=== PATIENT | male | born 1995 | race Caucasian/White ===

== ENCOUNTER 2016-07-11 09:39 | Emergency (ER) | payer MEDICARE, MEDICAID ==
[~2016-07-11] VITALS: Ht 188 cm; Wt 74.5 kg
[2016-07-11 09:42] VITALS: BP 126/87; PULSE 93; RESP 16; TEMP 99.6; O2SAT 100
[2016-07-11] MEDS ORDERED: ZITHTAB PO (10:13)
[2016-07-11] MEDS ORDERED: CHERSYP2 PO (10:13)
--- NOTE | 2016-07-11 10:13 | PD ---
HPI Chief Complaint: Cold / Flu Symptoms Time Seen by Provider: 10:10 Travel History International Travel<30 days: No Contact w/Intl Traveler<30days: No Traveled to known affect area: No History of Present Illness HPI Patient presents with complaints of sore throat and subjective fever for 2 days. Denies nausea vomiting. Admits to loose stools. No new rashes. No sick contacts. He is not a smoker. PFSH Past Medical History Hx Anticoagulant Therapy: No ADHD: Yes Bipolar Disorder: Yes Diabetes: No Diminished Hearing: No Musculoskeletal: Yes (HX LEFT ELBOW DISLOCATION) Immunizations Current: Yes Past Surgical History Surgical History: No Previous Surgery Social History Alcohol Use: No (DENIES) Tobacco Use: No (DENIES) Substance Use: No Allergies-Medications (Allergen,Severity, Reaction): Coded Allergies: No Known Allergies (Verified , 07/11/16) Reported Meds & Prescriptions Reported Meds & Active Scripts Active No Active Prescriptions or Reported Medications Review of Systems General / Constitutional: Positive: Fever Eyes: No: Visual changes HENT: Positive: Headaches, Sore Throat Cardiovascular: No: Chest Pain or Discomfort Respiratory: No: Shortness of Breath Gastrointestinal: No: Abdominal Pain Genitourinary: No: Dysuria Musculoskeletal: No: Pain Skin: No Rash Neurologic: No: Weakness Psychiatric: No: Depression Endocrine: No: Polydipsia Hematologic/Lymphatic: No: Easy Bruising Physical Exam Narrative GENERAL: Well-nourished, well-developed patient. SKIN: Focused skin assessment warm/dry. HEAD: Normocephalic. EYES: No scleral icterus. No injection or drainage. Throat is erythematous with adenopathy and exudate NECK: Supple, trachea midline. No JVD or lymphadenopathy. CARDIOVASCULAR: Regular rate and rhythm without murmurs, gallops, or rubs. RESPIRATORY: Breath sounds equal bilaterally. No accessory muscle use. GASTROINTESTINAL: Abdomen soft, non-tender, nondistended. MUSCULOSKELETAL: No cyanosis, or edema. BACK: Nontender without obvious deformity. No CVA tenderness. Data Data Last Documented VS Vital Signs Date Time Temp Pulse Resp B/P Pulse Ox O2 Delivery O2 Flow Rate FiO2 07/11/16 09:49 16 Room Air 07/11/16 09:42 99.6 93 126/87 100 MDM Medical Decision Making Medical Screen Exam Complete: Yes Emergency Medical Condition: Yes Differential Diagnosis Pharyngitis, strep throat, viral infection Narrative Course Assessment and plan discussed with patient at bedside Diagnosis Primary Impression: Strep throat Patient Instructions: General Instructions Additional Instructions: Rest fluids and Motrin, encourage frequent handwashing, consider vitamin C and zinc to boost immune system, follow-up with PCP symptoms do not improve Med/Other Pt SpecificInfo: Prescription(s) given Scripts Guaifenesin-Codeine Liq (Cheratussin AC Liq)100-10 Mg/5 Ml Syrp10 Ml PO Q4H PRN (COUGH AND COLD SYMPTOMS) #120 ML Ref 0 Do not exceed 6 doses/24 hrs. Prov:Albert Odell MD 07/11/16 Azithromycin (Zithromax Z-Demetrio)250 Mg [id number] Mg PO DIRECTED #1 DSPK Ref 0 500 MG (2 tabs) day 1, then 1 tab days 2-5. Prov:Albert Odell MD 07/11/16 Disposition: 01 DISCHARGE HOME Condition: Good Albert Odell MD Jul 11, 2016 10:13
== END 2016-07-11 10:19 | disposition home or self-care (01) ==
LOC: PHEFT 09:39
DX: J02.0 Streptococcal pharyngitis (principal)
CPT/HCPCS: 99283

== ENCOUNTER 2016-08-16 18:17 | Emergency (ER) | payer MEDICARE, MEDICAID ==
[~2016-08-16] VITALS: Ht 188 cm; Wt 70.2 kg
[~2016-08-16 18:17] MED LIST: CHERSYP2 PO; ZITHTAB PO
[2016-08-16 18:23] VITALS: BP 125/78; PULSE 81; RESP 16; TEMP 98.1; O2SAT 99
[2016-08-16] MEDS ORDERED: PENI250T59 PO (18:44)
[2016-08-16] MEDS ORDERED: ACETAMINOPHEN/HYDROcodone 325 MG/5 MG TAB PO ONE (18:45)
--- NOTE | 2016-08-16 18:59 | PD ---
HPI Chief Complaint: Oral / Dental Pain or Problem Time Seen by Provider: 18:51 Travel History International Travel<30 days: No Contact w/Intl Traveler<30days: No Traveled to known affect area: No History of Present Illness HPI 21-year-old male presents to the emergency room for evaluation of right-sided dental pain and flank the past week. Patient places with some deeper coming in and is requesting something for pain. He is busy and rhythm without significant relief. He does not have a dentist. He states his mother first noticed the swelling yesterday. Pain radiates from the back of his mouth into the front. Denies fever, chills, nausea, and vomiting. PFSH Past Medical History Hx Anticoagulant Therapy: No ADHD: Yes Bipolar Disorder: Yes Diabetes: No Diminished Hearing: No Musculoskeletal: Yes (HX LEFT ELBOW DISLOCATION) Immunizations Current: Yes Tetanus Vaccination: < 5 Years Social History Alcohol Use: No (DENIES) Tobacco Use: No (DENIES) Substance Use: No Allergies-Medications (Allergen,Severity, Reaction): Coded Allergies: No Known Allergies (Verified , 08/16/16) Reported Meds & Prescriptions Reported Meds & Active Scripts Active Penicillin Vk (Penicillin V Potassium) 250 Mg Tab 500 Mg PO Q6HR 7 Days Review of Systems Except as stated in HPI: all other systems reviewed are Neg Physical Exam Narrative GENERAL: Well-nourished, well-developed male in no acute distress. Afebrile. Ambulatory. SKIN: Focused skin assessment warm/dry. HEAD: Normocephalic. EYES: No scleral icterus. No injection or drainage. DENTAL: No loose or chipped teeth. No malocclusion. Good dentition overall. No erythema, drainage, or edema. Right-sided facial swelling and tenderness to palpation. EARS: Bilateral pinnae and external canals appear within normal limits. Bilateral tympanic membranes without erythema, dullness or perforation. NECK: Supple, trachea midline. No JVD or lymphadenopathy. PSYCHIATRIC: No delusional thought processes. No hallucinations. Data Data Last Documented VS Vital Signs Date Time Temp Pulse Resp B/P Pulse Ox O2 Delivery O2 Flow Rate FiO2 08/16/16 18:23 98.1 81 16 125/78 99 Orders Acetamin-Hydrocod 325-5 Mg (Knott 5-325 (08/16/16 18:45) [facility] Medical Decision Making Medical Screen Exam Complete: Yes Emergency Medical Condition: Yes Medical Record Reviewed: Yes Differential Diagnosis Dental abscess versus gingivitis versus dental caries Narrative Course 21-year-old male presents to the emergency room for evaluation of right lower dental pain and swelling for the past few days. Patient believes his wisdom teeth are erupting causing the pain. He has been taking ibuprofen without significant relief in symptoms. States pain is so severe he had a call out to work today. Physical exam reveals mild tenderness to palpation and right lower jaw swelling. Dentition is good overall with no obvious abscess or source of infection. Given his acute onset of edema and pain, he will be treated for dental abscess. Given Lortab in the emergency room. Patient discharged with prescription for penicillin. Told to follow up with a dentist or return for worsening symptoms. He understands and agrees to plan. Diagnosis Primary Impression: Dental caries Referrals: Dentist call for appointment Patient Instructions: General Instructions, Dental Caries (ED) Departure Forms: Tests/Procedures Med/Other Pt SpecificInfo: Prescription(s) given Scripts Penicillin V Potassium (Penicillin Vk)250 Mg [id number] Mg PO Q6HR 7 Days Ref 0 Prov:Jake Anders MD 08/16/16 Disposition: 01 DISCHARGE HOME Condition: Stable Jana Renteria August 16, 2016 18:59
== END 2016-08-16 18:55 | disposition home or self-care (01) ==
LOC: PHEFT 18:17
DX: K02.9 Dental caries, unspecified (principal)
CPT/HCPCS: 99283

== ENCOUNTER 2016-09-01 23:42 | Emergency (ER) | payer MEDICARE, MEDICAID ==
[~2016-09-01] VITALS: Ht 188 cm; Wt 74.0 kg
[~2016-09-01 23:42] MED LIST changes: -CHERSYP2 PO; +PENI250T59 PO; -ZITHTAB PO
[2016-09-01 23:45] VITALS: BP 133/87; PULSE 77; RESP 14; TEMP 98.4; O2SAT 99
--- NOTE | 2016-09-02 00:23 | PD ---
HPI Chief Complaint: Laceration/Skin Injury Time Seen by Provider: 00:17 Travel History International Travel<30 days: No Contact w/Intl Traveler<30days: No Traveled to known affect area: No History of Present Illness HPI 21-year-old male presents to the emergency department for complaint of laceration to the dorsum of his left index finger that reportedly occurred this evening around 7 PM. Patient states that he was supposedly trimming hedges and nipped his finger. Patient is right-handed. Patient does not know his tetanus status. Patient states he covered the wound site and now it looks like it's closing on its own already. Patient states since that time he's had pain in the ulnar distribution of his forearm. He states that he can hardly bend his fingers secondary to the pain on the dorsum of his proximal left index finger. Patient has no difficulty with straightening the digit. Patient also complains of dental pain. Patient was recently seen for dental pain and states now pain is on the alternate side. Patient has not followed up with a dentist. Pain: 12/05. PFSH Past Medical History Narrative Medical ADHD, bipolar disorder, elbow dislocation; positive alcohol and tobacco use Hx Anticoagulant Therapy: No ADHD: Yes Bipolar Disorder: Yes Diabetes: No Diminished Hearing: No Musculoskeletal: Yes (HX LEFT ELBOW DISLOCATION) Immunizations Current: Yes Tetanus Vaccination: Unknown Influenza Vaccination: No Social History Alcohol Use: Yes (Socially) Tobacco Use: Yes (Vapor electronic ) Substance Use: No Allergies-Medications (Allergen,Severity, Reaction): Coded Allergies: No Known Allergies (Verified , 09/02/16) Reported Meds & Prescriptions Reported Meds & Active Scripts Active Penicillin V Potassium 500 Mg Tab 500 Mg PO Q6H 7 Days Penicillin Vk (Penicillin V Potassium) 250 Mg Tab 500 Mg PO Q6HR 7 Days Review of Systems General / Constitutional: No: Fever HENT: Positive: Dental Difficulties Musculoskeletal: Positive: Pain (left index finger) Skin: Positive Other (laceration left index finger) Physical Exam Narrative GENERAL: Well-developed well-nourished male in no acute distress no respiratory distress SKIN: Warm and dry. HEAD: Normocephalic. EYES: No scleral icterus. No injection or drainage. ENT: Mucous membranes moist airway is patent patient with partial erupted left third molar #17 dentition with gingival tenderness to palpation nonfluctuant NECK: Supple, trachea midline. No JVD or lymphadenopathy. CARDIOVASCULAR: Regular rate and rhythm without murmurs, gallops, or rubs. RESPIRATORY: Breath sounds equal bilaterally. No accessory muscle use. GASTROINTESTINAL: Abdomen soft, non-tender, nondistended. MUSCULOSKELETAL: No cyanosis, or edema. Patient is able to demonstrate intact flexion and extension but complains of pain with flexion of the left index finger where there is a wedge-shaped flap laceration to the proximal dorsal aspect of the left index finger. No deformity. No bleeding. No drainage. No induration or erythema. Capillary refill is brisk and less than 2 seconds per digit. BACK: Nontender without obvious deformity. No CVA tenderness. Data Data Last Documented VS Vital Signs Date Time Temp Pulse Resp B/P Pulse Ox O2 Delivery O2 Flow Rate FiO2 09/02/16 00:05 16 09/01/16 23:45 98.4 77 133/87 99 Orders Wound Care (09/02/16 00:23) Tetanus/Diphtheria Tox Adult (Tetanus/Di (09/02/16 00:30) Penicillin V Potassium (Veetids) (09/02/16 00:30) MDM Medical Decision Making Medical Screen Exam Complete: Yes Emergency Medical Condition: Yes Medical Record Reviewed: Yes Differential Diagnosis Laceration, contusion, dentalgia, dental abscess Narrative Course Left index finger laceration cleansed and tetanus status updated; patient given first dose of antibiotic Diagnosis Primary Impression: Laceration of left index finger Additional Impression: Dentalgia Referrals: Dentist call for appointment Primary Care Physician call for appointment Patient Instructions: General Instructions Additional Instructions: Follow-up with primary care provider Keep wound site clean and dry change dressing daily Follow-up with dentist Return to the emergency department for any concerns or change in condition Med/Other Pt SpecificInfo: Prescription(s) given Scripts Penicillin V Potassium 500 Mg [id number] Mg PO Q6H 7 Days Ref 0 Prov:Cynthia Miller MD 09/02/16 Disposition: 01 DISCHARGE HOME Condition: Stable Cynthia Miller MD Sep 02, 2016 00:23 Cynthia Miller MD Sep 02, 2016 00:23
[2016-09-02] MEDS ORDERED: PENICILLIN V POTASSIUM 500 MG TAB PO ONE (00:30)
[2016-09-02] MEDS ORDERED: TETANUS/DIPHTHERIA TOXOID ADULT 0.5 ML VIAL IM ONE (00:30)
[2016-09-02] MEDS ORDERED: PENI500T PO (00:48)
== END 2016-09-02 01:00 | disposition home or self-care (01) ==
LOC: PHED 23:42
DX: S61.211A Laceration without foreign body of left index finger without damage to nail, initial encounter (principal); K08.89 Other specified disorders of teeth and supporting structures; W27.1XXA Contact with garden tool, initial encounter; Y93.H2 Activity, gardening and landscaping; Z23 Encounter for immunization; Z72.0 Tobacco use
CPT/HCPCS: 90471; 90714